=== PATIENT | female | born 1970 | race Caucasian/White ===

== ENCOUNTER 2019-06-17 10:58 | Outpatient (CLI) | payer OTHER, SELFPAY ==
--- NOTE | 2019-06-17 11:08 | MM_ITS ---
WS: [id number] BILATERAL SCREENING MAMMOGRAM WITH LUDIN DISPLACEMENT VIEWS. CAD PERFORMED. HISTORY: SCREENING COMPARISON: 03/24/2018 and 01/16/2016 Bilateral craniocaudal and mediolateral like views are performed. Ludin displacement views in CC and MLO projection also performed. Breasts composition: The breasts are extremely dense, which lowers the sensitivity of mammography. D ense fibroglandular tissue with a few scattered calcifications. Implants are intact. Partial capsular contraction of the RIGHT implant. FOLLOW-UP: 1 Year Follow-up MM/[place] [id number] IMPRESSION: BI-RADS: 2-Benign
== END 2019-06-17 10:59 | disposition home or self-care (01) ==
LOC: RADSHAW 11:03
PROVIDERS: Family Provider Family Medicine; Visit Provider Family Medicine
DX: Z12.31 Encounter for screening mammogram for malignant neoplasm of breast (principal)
CPT/HCPCS: 77067

== ENCOUNTER 2020-08-15 10:21 | Outpatient (CLI) | payer OTHER, SELFPAY ==
--- NOTE | 2020-08-15 10:23 | MM_ITS ---
WS: [id number] BILATERAL DIGITAL SCREENING MAMMOGRAM WITH CAD CLINICAL INFORMATION: SCREENING HISTORY: Screening mammogram. No current complaints. COMPARISON: June 17, 2019 TECHNIQUE: Bilateral CC and MLO. FINDINGS: Bilateral breast implants appear intact. The breast are composed of extremely dense tissue, which can limit the detection of small underlying mass lesions. No suspicious focal mass, asymmetry, calcifications, or architectural distortion. No ev idence of malignancy. Punctate and lucent centered calcifications. Stable punctate and amorphous calc ifications right breast. Stable clustered calcifications. MM/[place] [id number] IMPRESSION: BI-RADS: 2-Benign FOLLOW UP: 1 Year Follow-up Recommend return to annual screening mammography.
== END 2020-08-15 10:22 | disposition home or self-care (01) ==
LOC: RADSHAW 10:22
PROVIDERS: PCP Family Medicine; Visit Provider Family Medicine
DX: Z12.31 Encounter for screening mammogram for malignant neoplasm of breast (principal)
CPT/HCPCS: 77067

== ENCOUNTER → 2021-03-04 08:31 | Outpatient (BNVA) | payer OTHER, SELFPAY | PROVIDERS: PCP Family Medicine; Visit Provider Podiatrist Foot & Ankle Surgery | DX: M79.671 Pain in right foot (principal); M79.672 Pain in left foot | CPT/HCPCS: 73630 ==

== ENCOUNTER → 2021-04-05 09:52 | Outpatient (BNVA) | payer OTHER, SELFPAY | PROVIDERS: PCP Family Medicine; Visit Provider Plastic Surgery | DX: Z01.812 Encounter for preprocedural laboratory examination (principal); Z20.822 Contact with and (suspected) exposure to COVID-19 | CPT/HCPCS: 87635 ==

== ENCOUNTER 2023-04-02 12:56 | Outpatient (CLI) | payer OTHER, SELFPAY ==
--- NOTE | 2023-04-02 13:09 | MM_ITS ---
WS: [id number] BILATERAL SCREENING DIGITAL BREAST MAMMOGRAPHY WITH LUDIN DISPLACEMENT VIEWS. CAD PERFORMED. HISTORY: Z00.00 - Encounter for general adult medical examination ... COMPARISON: 08/15/2020 and 03/24/2018 Bilateral craniocaudal and mediolateral oblique views are performed with tomosynthesis and SM. Ludin displacement views in CC and MLO projection also performed. Breasts composition: The breasts are extremely dense, which lowers the sensitivity of mammography. I mplants are intact. No extravasation or collapse. There are few calcifications within each breast whi ch are unchanged and benign in appearance. No mass or distortion. IMPRESSION: MM/[place] [id number] BI-RADS: 2-Benign FOLLOW-UP: 1 Year Follow-up
== END 2023-04-02 12:57 | disposition home or self-care (01) ==
PROVIDERS: PCP Family Medicine; Visit Provider Family Medicine
DX: Z12.31 Encounter for screening mammogram for malignant neoplasm of breast (principal)
CPT/HCPCS: 77063; 77067

== ENCOUNTER → 2023-11-17 10:21 | Outpatient (BNVA) | payer OTHER, SELFPAY | PROVIDERS: PCP Family Medicine; Visit Provider Family Medicine | DX: E03.9 Hypothyroidism, unspecified (principal); Z00.00 Encounter for general adult medical examination without abnormal findings; Z13.6 Encounter for screening for cardiovascular disorders | CPT/HCPCS: 80053; 80061; 84443; 85025 ==

== ENCOUNTER → 2025-05-04 08:28 | Outpatient (BNVA) | payer OTHER, SELFPAY | PROVIDERS: PCP Family Medicine; Visit Provider Family Medicine | DX: E03.9 Hypothyroidism, unspecified (principal); M25.50 Pain in unspecified joint; M19.90 Unspecified osteoarthritis, unspecified site | CPT/HCPCS: 80053; 80061; 84443; 85025; 85651; 86038; 86140 ==

== ENCOUNTER 2025-05-18 13:49 | Outpatient (CLI) | payer OTHER, SELFPAY ==
--- NOTE | 2025-05-18 14:00 | XR_ITS ---
WS: [id number] Exam: XR wrist LT 2V [id number] Date/Time of Exam: 05/18/2025 2:00 PM Reason For Exam: M25.50 - Pain in unspecified joint DLP: No fracture noted. The joint compartment is well-maintained. Normal soft tissues. Subcortical cyst formation in the lunate. XR/XR wrist LT 2V [id number] IMPRESSION: 1. No fracture or other significant finding.
--- NOTE | 2025-05-18 14:00 | XR_ITS ---
WS: [id number] Exam: XR wrist RT 2V [id number] Date/Time of Exam: 05/18/2025 2:00 PM Reason For Exam: M25.50 - Pain in unspecified joint DLP: No fracture noted. The joint compartment is preserved. Subcortical cyst formation in the proximal scaphoid. Normal soft tissues. IMPRESSION1. No fracture or other significant finding. 2. Subcortical cyst formation in the proximal scaphoid.
== END 2025-05-18 13:50 | disposition home or self-care (01) ==
PROVIDERS: PCP Family Medicine; Visit Provider Family Medicine
DX: M25.532 Pain in left wrist (principal); M25.531 Pain in right wrist; M67.431 Ganglion, right wrist; M67.432 Ganglion, left wrist
CPT/HCPCS: 36415; 73100; 86431